=== PATIENT | male | born 1975 | race Asian ===

== ENCOUNTER 2017-12-01 06:44 | Inpatient (IN) | payer OTHER ==
[2017-12-01] MEDS ORDERED: ACETAMINOPHEN 500 MG TAB PO ONE (07:17)
[2017-12-01] MEDS ORDERED: ceFAZolin 2 GM/SWFI 2 GM/20 ML SYR IVP ONE (07:17)
[2017-12-01] MEDS ORDERED: ASPIRIN 325 MG TAB PO ONE (07:17)
[2017-12-01] MEDS ORDERED: LIDOCAINE 1% 2 ML INJ ID PRN (07:26)
[2017-12-01] MEDS ORDERED: LR 1,000 ML IV ONE (07:26)
[2017-12-01] MEDS ORDERED: ASPIRIN 325 MG TAB ONE (08:23)
[2017-12-01] MEDS ORDERED: AVITENE POWDER 1 GM JAR TP ONE (08:31)
--- NOTE | 2017-12-01 08:32 | PDHPUP ---
History & Physical Update H&P update statement: This history and physical update is based on an assessment of the patient which was completed after admission or registration (within 24 hours), but prior to the surgery/procedure. H&P update: H&P reviewed & patient examined, no change in patient's condition since H&P completed
[2017-12-01] MEDS ORDERED: THROMBIN (BOVINE) 5,000 UNIT VIAL TP ONE (08:37)
[2017-12-01] MEDS ORDERED: BACITRACIN ZINC 14.2 GM OINTTUBE TP ONE (08:48)
[2017-12-01] MEDS ORDERED: CHLORHEXIDINE GLUCONATE 15 ML UDL ONE (08:49)
[2017-12-01] MEDS ORDERED: fentaNYL 250 MCG/5 ML INJ ONE ×2 (08:50)
[2017-12-01] MEDS ORDERED: PROPOFOL/EMULSION 500 MG/50 ML BOTTLE IV ONE ×2 (08:51)
[2017-12-01] MEDS ORDERED: MIDAZOLAM 2 MG/2 ML VIAL ONE ×2 (08:52)
[2017-12-01] MEDS ORDERED: CHLORHEXIDINE GLUC HIBICLENS 118 ML BTL TP ONE (08:55)
[2017-12-01] MEDS ORDERED: ROPIVACAINE HCL 150 MG/30 ML INJ ONE (08:56)
[2017-12-01] MEDS ORDERED: INDOCYANINE GREEN 25 MG VIAL ONE (08:57)
[2017-12-01 09:13] LABS: PLATELET COUNT 273 10^3/uL (150-400)
--- NOTE | 2017-12-01 09:18 | PDANEPAE ---
ANE History of Present Illness Pt is a 42 year old with PMH significant for Moyamoya disease with global aphasia here today for and ECA to ICA. He is otherwise healthy and parents deny any other medical problems with cardiac, pulmonary, GI, or neuromuscular deficits. He has had general anesthesia in the past with no issues. No history of nausea and vomiting. Per history he has left upper extremity deficits. ANE Past Medical History - Cardiovascular History Hx Hypertension: Yes Hx Arrhythmias: No Hx Chest Pain: No Hx Coronary Artery / Peripheral Vascular Disease: No Hx CHF / Valvular Disease: No Hx Palpitations: No - Pulmonary History Hx COPD: No Hx Asthma/Reactive Airway Disease: No Hx Recent Upper Respiratory Infection: No Hx Oxygen in Use at Home: No Hx Sleep Apnea: No Sleep Apnea Screening Result - Last Documented: Negative - Neurologic History Hx Cerebrovascular Accident: Yes Hx Seizures: No Hx Dementia: No Neurologic History Comment: 09/23/17 - Endocrine History Hx Diabetes: No - Renal History Hx Renal Disorders: No - Liver History Hx Hepatic Disorders: No - Neurological & Psychiatric Hx Hx Neurological and Psychiatric Disorders: Yes Neurological / Psychiatric History Comment: DDECREASED LEFT ARM FUNCTION,GLOBAL APHAGIA,WORD FINDING DIFFICULTIES - Cancer History Hx Cancer: No - Congenital Disorder History Hx Congenital Disorders: No - GI History Hx Gastrointestinal Disorders: No - Other Health History Other Health History: NONE - Chronic Pain History Chronic Pain: No - Surgical History Prior Surgeries: NONE ANE Review of Systems Review of Systems: - Exercise capacity METS (RN): 4 METS ANE Patient History - Allergies Allergies/Adverse Reactions: No Known Allergies Allergy (Verified 12/01/17 07:29) - Home Medications Home Medications: Aspirin [Aspirin 325 mg (*)] 325 mg PO DAILY 11/30/17 [Last Taken 11/30/17] Ergocalciferol [Vitamin D2 (*)] 50,000 units PO FR 11/30/17 [Last Taken 11/26/17 ] - NPO status NPO Since - Liquids (Date): 11/30/17 NPO Since - Liquids (Time): 20:00 NPO Since - Solids (Date): 11/30/17 NPO Since - Solids (Time): 19:00 - Smoking Hx Smoking Status: Never smoked - Family Anes Hx Family Hx Anesthesia Complications: NONE ANE Labs/Vital Signs - Labs Result Diagrams: 12/01/17 08:05 12/01/17 08:05 - Vital Signs Blood Pressure: 134/82 Heart Rate: 68 Respiratory Rate: 16 O2 Sat (%): 95 Height: 167.64 cm Weight: 77.111 kg ANE Physical Exam - Airway Mallampati Score: Class 1 Mouth exam: normal dental/mouth exam - Pulmonary Pulmonary: no respiratory distress - Cardiovascular Cardiovascular: regular rate and rhythym - ASA Status ASA Status: III ANE Anesthesia Plan Anesthesia Plan: general endotracheal anesthesia (Discussed plan with Dr. Enriquez, maintaining MAP 75, arterial line, two large bore IV, possible central line, post op intubation, ICU admission) Lines/Monitors: arterial line, central line, additional IV Total IV Anesthesia: No
[2017-12-01] MEDS ORDERED: THROMBIN (BOVINE) 20,000 UNIT VIAL TP ONE (09:23)
[2017-12-01] MEDS ORDERED: GENTAMICIN SULFATE 80 MG/2 ML VIAL ONE ×2 (09:26→12:27)
[2017-12-01] MEDS ORDERED: BUPIVACAINE 0.25% 30 ML SDV ONE ×2 (09:35→10:29)
[2017-12-01] MEDS ORDERED: ROCURONIUM 100 MG/10 ML VIAL ONE ×3 (09:46→12:05)
[2017-12-01] MEDS ORDERED: PROPOFOL 200 MG/20 ML VIAL ONE ×8 (09:47→14:48)
[2017-12-01] MEDS ORDERED: WATER FOR INJ.,BACTERIOSTATIC 30 ML MDV ONE (09:49)
[2017-12-01] MEDS ORDERED: DEXMEDETOMIDINE IN 0.9 % NACL 50 ML IV ONE (10:00)
[2017-12-01] MEDS ORDERED: PAPAVERINE HCL 60 MG/2 ML SDV ONE ×2 (10:54→14:05)
[2017-12-01] MEDS: SURGIFLO MATRIX KIT WITH THROMBIN 8ml TP ONE ×2 (10:55→16:46)
[2017-12-01] MEDS ORDERED: ONDANSETRON 4 MG/2 ML VIAL ONE (11:14)
[2017-12-01] MEDS ORDERED: levETIRAcetam 1,000 MG in NS 100 ML IV ONE (15:30)
[2017-12-01] MEDS ORDERED: PHENYLEPHRINE HCL 100 MCG/ML SYR ONE (16:43)
--- NOTE | 2017-12-01 16:46 | POSTOPPROG ---
Post Op Note Date of Operation: 12/01/17 Surgeon: Shameka Pelaez Gas Examiner: Shameka Pelaez PA-C Anesthesia: GET(General Endotracheal) Pre-op Diagnosis: ivy-ivy Post-op Diagnosis: ivy-ivy Procedure: left craniotomy for EC-IC bypass Inf/Abcess present in the surg proc area at time of surgery?: No Depth: Organ Space EBL: 200mL Complications: None, See full dictated operative report Drains: Shahab Olguin (LILLIANA X1- subgaleal) SOAP Progress Note Assessment/Plan: Assessment: Plan: 12/01/17 16:36 S: Patient in PACU. Still waking up from anesthesia. O: NAD, VSS PERRL, EOMI CN II-XII grossly intact MATUTE X4 Incision c/d/i- sutured and dressed with baci/telfa LILLIANA X 1- subgaleal A: 42 yo male with hx of Ivy-Ivy and intracranial hemorrhage ~2 months ago. Now sp re-do left craniotomy for EC-IC bypass. P: -Admit to ICU -Q2 hour neuro checks -SBP Goal 100-140 -Postop Head CT in am -LILLIANA X1 subgaleal -HOB >30 degrees overnight -SBP goal 100-140 -Call with any changes in neuro or motor exam Objective: Vital Signs Temp Pulse Resp BP Pulse Ox 36.7 C 68 16 134/82 H 95 12/01/17 09:04 12/01/17 09:21 12/01/17 09:21 12/01/17 09:21 12/01/17 09:21 Laboratory Results 12/01/17 08:05 12/01/17 08:05
[2017-12-01] MEDS ORDERED: HYDROCODONE/APAP 10/325 TAB PO PRN (16:47)
[2017-12-01] MEDS ORDERED: MAGNESIUM HYDROXIDE 30 ML UDCUP PO PRN (16:47)
[2017-12-01] MEDS ORDERED: niCARdipine/NACL 200 ML IV PRN (16:47)
[2017-12-01] MEDS ORDERED: ACETAMINOPHEN 325 MG TAB PO PRN ×2 (16:47)
[2017-12-01] MEDS ORDERED: ONDANSETRON 4 MG/2 ML VIAL IVP PRN ×2 (16:47→16:49)
[2017-12-01] MEDS ORDERED: POLYETHYLENE GLYCOL 3350 17 GM PKT PO PRN (16:47)
[2017-12-01] MEDS ORDERED: LACTULOSE 20 GM/30 ML UDCUP PO PRN (16:47)
[2017-12-01] MEDS ORDERED: ONDANSETRON DISINTEGRATING 4 MG TAB PO PRN (16:47)
[2017-12-01] MEDS ORDERED: BISACODYL 10 MG SUPP PR PRN (16:47)
[2017-12-01] MEDS ORDERED: NALOXONE HCL 0.4 MG/ML INJ IVP PRN (16:49)
--- NOTE | 2017-12-01 16:55 | POSTANESTH ---
Post Anesthetic Evaluation Cardiovascular Status: Normal, Stable Respiratory Status: Normal, Stable Level of Consciousness/Mental Status: Mildly Sleepy, Arousable, Moderately Sleepy Pain Control: Adequate, Prn Tx Ordered Nausea/Vomiting Control: Adequate, Prn Tx Ordered Complications Possibly Related to Anesthesia: None Noted
[2017-12-01] MEDS ORDERED: NS W/ 20 KCl/L 1,000 ML IV SCH (17:00)
[2017-12-01] MEDS ORDERED: CEFAZOLIN 1 GM/DEXTROSE/50 ML BAG IV ONE (17:12)
[2017-12-01] MEDS: levETIRAcetam 500 MG TAB PO SCH (20:58)
[2017-12-01] MEDS: SENNOSIDES/DOCUSATE SODIUM TAB PO SCH (20:59)
[2017-12-02 04:42] LABS: PLATELET COUNT 199 10^3/uL (150-400)
--- NOTE | 2017-12-02 04:45 | GOP ---
[f rep st] OPERATIVE REPORT DATE OF OPERATION: 12/01/2017 SURGEON: Roman Kingston MD NEUROSURGEON: Roman Kingston MD AUTOMOTIVE BRAKE SPECIALIST: Shameka Henderson PA-C ANESTHESIA: General endotracheal anesthesia. PREOPERATIVE DIAGNOSIS: Status post left frontal intraparenchymal hemorrhage with new diagnosis of moyamoya disease. POSTOPERATIVE DIAGNOSIS: Status post left frontal intraparenchymal hemorrhage with new diagnosis of moyamoya disease. PROCEDURE PERFORMED: 1. Redo left frontotemporal craniotomy. 2. Superficial temporal to middle cerebral artery direct bypass with indirect bypass as well. 3. Use of the operative microscope. FINDINGS: SPECIMENS: No specimens. ESTIMATED BLOOD LOSS: 200 cc. INDICATIONS: The patient is a 42-year-old man who presented about 2 months ago to [facility] with a left frontal intraparenchymal hemorrhage. Cerebral angiogram was done, and he has essentially occlusion of the distal supraclinoid carotid and carotid bifurcation, and the brain is filling on small moyamoya-type collaterals. He made an excellent recovery, but still remains moderately globally aphasic. Given this recovery, I had spoken with his doctors down there, and they had referred for ECIC bypass. We discussed that we would attempt to the direct bypass, but would also do indirect at the same time to allow vessels to grow in from the dura and further collaterallize with the brain. DESCRIPTION OF PROCEDURE: After informed consent was obtained from the patient , the patient brought to the operating room and was placed in a supine position on the operating table. A formal timeout was performed, identifying the patient by name, medical record number, and date of . The endotracheal tube was placed, and general endotracheal anesthesia was smoothly induced. The patient's head was placed in the Moore pins and turned slightly toward the right side. Exposing the left temporal region. The hair was clipped. Doppler ultrasound was used to Doppler the superficial temporal artery, both the frontal and parietal branches, and these were marked on the skin. The BIS monitor was placed, and the patient's MAPs were kept above 75 throughout the entire case. He had been given aspirin both yesterday and today in preparation for the procedure. The head was then prepped and draped in the normal sterile fashion. The skin incision was made using a 10 blade, and the subcutaneous tissues were dissected proximally using the sharp dissection. The superficial temporal artery common trunk was identified, and then the previous reverse question-tripp incision that he had had was opened throughout its circumference. The skin flap was retracted anteriorly off the temporalis fascia, and the superficial temporal artery was very carefully dissected from beneath. The parietal branch was completely dissected but appeared to end where the previous craniotomy incision had been. It was still quite a robust branch with good runoff into other skin collaterals. The frontal branch was that was also identified and was carefully dissected. Given that he had this reverse question-tripp style craniotomy incision, I did not want to take his entire superficial temporal artery for fear of skin breakdown, therefore, we left the frontal branch intact for now and placed an aneurysm clip and sacrifice the distal parietal branch. The temporalis muscle was opened and retracted anteriorly, and in the subtemporal region, the muscle was cut to allow passage of the superficial temporal artery through. The previous craniotomy flap was then removed, and the craniotome was used to turn about 1.5 cm more anteriorly in the frontal region of more craniotomy flap. At this point, the dura was visualized, and all bleeding was controlled using bipolar electrocautery and Gelfoam. The previous cruciate-style dural opening was then opened, and this was opened further anteriorly. The encephalomalacia in the region where the previous craniotomy had been was visualized, and interestingly, no arterial branches were visualized anywhere on the aditya or the surface of the brain. At this point, the operative microscope was brought onto the field, and the remainder of the procedure was performed under high-power magnification. We began by opening the arachnoid over a frontal sulcus, and as this sulcus was dissected, a larger arterial branch was visualized in the depths. This branch was measured at approximately 1 mm. This was a reasonable size match for the parietal branch of the superficial temporal artery. After this artery was skeletonized, we went back to the superficial temporal artery, and this was cleared of its adventitial tissue, and the end was fish-mouthed slightly. It appeared to have very good flow. It was copiously irrigated using heparinized saline. We went back to the pial branch then, and once it was completely skeletonized, a rubber dam was placed beneath the artery, allowing good working space, and 2 temporary aneurysm clips were placed proximally and distally on the vessel, occluding it. A sharp blade was used to open the vessel, and it was further opened in both directions to be a good size match to the superficial temporal artery. This was copiously irrigated with heparinized saline. We then used a 10-0 Prolene to tack the heel and toe of the superficial temporal artery to the branch of the middle cerebral artery. Under high-power magnification, the anastomosis was then carefully made using interrupted 10-0 nylon sutures. The anastomosis looked very good, and there were no signs of any adventicia within the vessel. Prior to final opening, all vessels were back bled and seemed to be flowing well. The final suture was placed. The distal artery was opened and the superficial temporal artery was opened. This was checked with a Doppler ultrasound. There not appear to be very good flow through the bypass or distally. The proximal MCA vessel was opened, and again, there did not seem to be very good flow. An indocyanine green angiogram was performed using the microscope, and this showed a focal occlusion at the site of the anastomosis. Again, under high-power magnification, 2 sutures were removed, and the anastomosis was opened. There was clear thrombus at the site of the anastomosis. This was cleared, and all the vessels, again, were flowing well. The anastomosis was again completed using interrupted 10-0 sutures. Again, the anastomosis was checked using a Doppler ultrasound and appeared to be open approximately at the MCA, but distally, again, the anastomosis was occluded. Again, the sutures were opened, and the clot was washed away, and the anastomosis was revised, but unfortunately this time, the MCA vessel was becoming very difficult to work with and fragile. The anastomosis was again completed, and after all the vessels were open, there appeared to be some flow, but it was not extremely robust. We did have a slight Doppler signal at the MCA vessel, as well as in the parietal branch of the STA, suggesting that it was somewhat patent. I did not think that revising this any further was going to be useful, as the MCA vessel was becoming very fragile. Therefore, some papaverine-soaked Gelfoams were placed over the STA bypass branch. At this point, the anastomosis site was covered with Fibrillar Surgicel and appeared to be well intact. Next, the wound was copiously irrigated using gentamicin irrigation. Again, the Doppler tones were checked, and there was a very weak signal within the superficial temporal artery in the MCA branch, which was not robust at all. At this point, we carried on with the indirect bypass inverting the dural leaflets and placing these over the pial surface. The remaining portion of the STA branch was within the temporalis muscle. This was then laid down over the inferior portion of the temporal lobe on the brain, forming an encephalo-dural- danelle-synangiosis. At this point, again, the Doppler tones were checked, and there was some flow in the STA. The craniotomy flap was then plated back in place using Synthes titanium plates and screws, with care not to compress the site of where the STA was traveling through. In the subcu in the inferior temporal region, the muscle was also in contact with the peel surface. The remaining muscle was then tacked closed using interrupted 2-0 Vicryl. The wound was copiously irrigated using bacitracin irrigation. A 10-Cypriot LILLIANA drain was placed in the subgaleal space. The galea was closed using interrupted 2-0 Vicryl. The skin was closed using a running 3-0 Prolene. The drain was connected to a sterile drainage system. Sterile dressings were placed. The patient was awakened in the operating room, and transferred to the PACU in stable condition. There were no operative complications. I was scrubbed and present for the entire procedure. URINE: 1700 mL. IV FLUIDS: 3700 crystalloid. /[id number]/MODL MTDD
--- NOTE | 2017-12-02 07:38 | SOAPPROG ---
SOAP Progress Note Assessment/Plan: Assessment: POD#1 s/p EC-IC bypass for moyamoya. Doing well. Plan: - doing well, OK to tx to floor if he can go there with LILLIANA drain - will leave LILLIANA drain until tomorrow (200 output) - continue keppra 750 BID for 2 weeks - Aspirin 325mg daily indefinitely - PT/OT/speech - anticipate d/c tomorrow 12/02/17 07:35 Subjective: no new events, speech actually seems a little better Objective: Vital Signs Temp Pulse Resp BP Pulse Ox 36.3 C 72 16 136/85 H 92 12/01/17 19:32 12/02/17 06:00 12/02/17 06:00 12/02/17 06:00 12/02/17 06:00 Laboratory Results 12/02/17 04:30 12/02/17 04:30 12/01/17 12/02/17 12/03/17 05:59 05:59 05:59 Intake Total 6200 Output Total 2960 Balance 3240 Awake/alert, able to say name, count fingers, knows the day. Global aphasia actually seems a bit better than pre-op full strength and sensation, no drift wound c/d/i - Pending Discharge Pending Discharge Within 24 Hours: No Pending Discharge Within 48 Hours: Yes Pending Discharge Date: 12/04/17 Pending Discharge Time: 11:00 ICD10 Worksheet Patient Problems: Problems Problem Status Onset Moyamoya disease Acute - ICD10 Problem Qualifiers (1) Moyamoya disease
[2017-12-02] MEDS: ASPIRIN 325 MG TAB PO SCH (08:09)
[2017-12-02] MEDS: levETIRAcetam 500 MG TAB PO SCH ×3 (08:10→20:45)
[2017-12-02] MEDS: SENNOSIDES/DOCUSATE SODIUM TAB PO SCH ×2 (08:10→20:46)
--- NOTE | 2017-12-02 15:32 | ASMTCASEMG ---
Living Arrangements What is your living Answers: Alone arrangement? Who do you live with? Type Of Residence What kind of residence do Answers: Apartment you live in? Discharge Plan Comments Coordination Status Comments Notes: Pt is a 42 y/o man admitted for an operative procedure. Therapies have cleared pt to d/c independent when medically stable. CM available for changes. Plan: Independent Date Signed: 12/02/2017 03:32 PM Electronically Signed By:YRN Rice
[2017-12-03] MEDS: levETIRAcetam 500 MG TAB PO SCH (07:59)
[2017-12-03] MEDS: ASPIRIN 325 MG TAB PO SCH (08:00)
[2017-12-03] MEDS: SENNOSIDES/DOCUSATE SODIUM TAB PO SCH (08:00)
--- NOTE | 2017-12-03 08:28 | NEUSURGPN ---
Assessment/Plan: Assessment: POD#2 s/p EC-IC bypass for moyamoya. Doing well. Plan: - Continue keppra 750 BID for 2 weeks -LILLIANA drain removed this morning - Aspirin 81mg daily indefinitely - PT/OT/speech - anticipate d/c later today -Discussed with Dr. Kingston -Please notify NS with any change in neuro/motor exam Subjective: Denies any pain, sattes he feels much better then he did prior to surgery. Objective: NAD A&Ox3 MAEx4 Incision c/d/i. LILLIANA drain sanguineous - Physician Discussed Patient with : [facility] Physical Exam - Vitals, I&O, Labs I and O 12/02/17 12/03/17 12/04/17 05:59 05:59 05:59 Intake Total 6200 1350 Output Total 2960 114 Balance 3240 1236 Weight 77.111 kg Intake: Oral (ml) 300 1350 IV Intake (ml) 4700 0 IV Infused (ml) 1200 NS W/ 20 KCl/L 1,000 ml @ 1000 100 mls/hr IV CONT ELENITA Rx#:[id number] ceFAZolin 1 GM/DEXTROSE 100 50 ml @ 200 mls/hr IV Q8HRS ELENITA Rx#:[id number] niCARdipine/NACL 200 ml @ 100 Titrate IV PRN PRN Rx#: [id number] Output: Urine (ml) 2500 4 Catheter 2500 Toilet 4 Estimated Blood Loss (ml) 200 LILLIANA Drain Output (ml) 260 110 Head 260 110 Other: Number of Voids Toilet 3 Vital Signs Temp Pulse Resp BP Pulse Ox 36.7 C 81 15 146/98 H 91 L 12/03/17 07:57 12/03/17 07:57 12/03/17 07:57 12/03/17 07:57 12/03/17 07:57 Laboratory Results 12/02/17 04:30 12/02/17 04:30 ICD10 Worksheet Patient Problems: Problems Problem Status Onset Moyamoya disease Acute
[2017-12-03 12:11] VITALS: BP 130/77; PULSE 92; RESP 14; TEMP 97.7; O2SAT 96
== END 2017-12-03 13:25 | disposition home or self-care (01) | DRG 26 ==
LOC: F3N 06:44 → F2N 16:37
PROVIDERS: ADMIT Neurological Surgery; ATTEND Neurological Surgery
PROC: 031 Upper Arteries, Bypass (ICD-10-PCS; principal; 2017-12-01 09:00)
DX: I67.5 Moyamoya disease (principal); I62.9 Nontraumatic intracranial hemorrhage, unspecified; I10 Essential (primary) hypertension
CPT/HCPCS: 92507-GN; 92523-GN; 97161-GP; 97166-GO; C1713; J0171; J0690; J1644; J1953; J2250; J2370; J2405; J2440; J2704; J2795; J3010